=== PATIENT | female | born 1950 | race Caucasian/White ===

== ENCOUNTER 2025-04-29 08:29 | Outpatient (CLI) | payer MEDICARE | END 2025-04-29 08:30 | disposition home or self-care (01) | LOC: CSHWCC 08:29 | PROVIDERS: ATTEND Nurse Practitioner Family | DX: E11.621 Type 2 diabetes mellitus with foot ulcer (principal); L97.511 Non-pressure chronic ulcer of other part of right foot limited to breakdown of skin; E11.65 Type 2 diabetes mellitus with hyperglycemia; F03.A18 Unspecified dementia, mild, with other behavioral disturbance | CPT/HCPCS: 11042; G0463; 99214 ==

== ENCOUNTER 2025-05-11 10:47 | Outpatient (CLI) | payer MEDICARE | END 2025-05-11 10:48 | disposition home or self-care (01) | LOC: CSHWCC 10:47 | PROVIDERS: ATTEND Nurse Practitioner Family | DX: E11.621 Type 2 diabetes mellitus with foot ulcer (principal); L97.511 Non-pressure chronic ulcer of other part of right foot limited to breakdown of skin; E11.65 Type 2 diabetes mellitus with hyperglycemia; F03.A18 Unspecified dementia, mild, with other behavioral disturbance | CPT/HCPCS: 11042 ==

== ENCOUNTER 2025-05-25 11:15 | Outpatient (CLI) | payer MEDICARE | END 2025-05-25 11:16 | disposition home or self-care (01) | LOC: CSHWCC 11:15 | PROVIDERS: ATTEND Nurse Practitioner Family | DX: E11.621 Type 2 diabetes mellitus with foot ulcer (principal); L97.511 Non-pressure chronic ulcer of other part of right foot limited to breakdown of skin; E11.65 Type 2 diabetes mellitus with hyperglycemia; F03.A18 Unspecified dementia, mild, with other behavioral disturbance ==

== ENCOUNTER 2025-06-08 14:39 | Outpatient (CLI) | payer MEDICARE | END 2025-06-08 14:40 | disposition home or self-care (01) | LOC: CSHWCC 14:39 | PROVIDERS: ATTEND Nurse Practitioner Family | DX: E11.621 Type 2 diabetes mellitus with foot ulcer (principal); L97.511 Non-pressure chronic ulcer of other part of right foot limited to breakdown of skin; E11.65 Type 2 diabetes mellitus with hyperglycemia; F03.A18 Unspecified dementia, mild, with other behavioral disturbance | CPT/HCPCS: 11042 ==

== ENCOUNTER 2025-06-22 15:01 | Outpatient (CLI) | payer MEDICARE | END 2025-06-22 15:02 | disposition home or self-care (01) | LOC: CSHWCC 15:01 | PROVIDERS: ATTEND Nurse Practitioner Family | DX: E11.621 Type 2 diabetes mellitus with foot ulcer (principal); L97.511 Non-pressure chronic ulcer of other part of right foot limited to breakdown of skin; E11.65 Type 2 diabetes mellitus with hyperglycemia; F03.A18 Unspecified dementia, mild, with other behavioral disturbance | CPT/HCPCS: 11042 ==